=== PATIENT | male | born 1970 | race Caucasian/White ===

== ENCOUNTER 2018-01-23 21:42 | Emergency (ER) | payer MEDICAID, OTHER ==
[~2018-01-23] VITALS: Ht 167.6 cm; Wt 119.0 kg
[~2018-01-23 21:42] MED LIST: ATOR10TA PO; Aspirin PO; Metoprolol Tartrate PO
[2018-01-23 22:31] VITALS: BP 129/84
== END 2018-01-24 02:00 | disposition left against medical advice (07) ==
LOC: ER 21:42
DX: H57.8 Other specified disorders of eye and adnexa (principal); Z53.21 Procedure and treatment not carried out due to patient leaving prior to being seen by health care provider

== ENCOUNTER 2022-02-06 16:20 | Emergency (ER) | payer MEDICAID, OTHER ==
[~2022-02-06] VITALS: Ht 167.6 cm; Wt 80.0 kg
[2022-02-06 16:25] VITALS: BP 132/98
== END 2022-02-06 17:06 ==
LOC: ER 16:20
DX: S60.511A Abrasion of right hand, initial encounter (principal); S50.811A Abrasion of right forearm, initial encounter; S90.811A Abrasion, right foot, initial encounter; W26.8XXA Contact with other sharp object(s), not elsewhere classified, initial encounter; Y93.89 Activity, other specified; Y92.89 Other specified places as the place of occurrence of the external cause; Y99.8 Other external cause status; R00.0 Tachycardia, unspecified
CPT/HCPCS: 99283